=== PATIENT | female | born 1975 | race Caucasian/White ===

== ENCOUNTER 2016-10-06 08:00 | Emergency (ER) | payer MEDICAID ==
--- NOTE | 2016-10-08 13:11 | ER ---
ADMIT: 10/06/2016 RM/LOC: ER [facility] MR#: [id number] [address] [id number] SABINA LLAMAS [address] [place] [address] Emergency Room Report SEX: F AGE: 41 : 1975 DATE: 10/06/2016 A 41-year-old with headache. She has chronic headaches that occurred at least once every three months, but has it more frequently, it is similar to her prior headaches. See T-sheet for history and physical. The patient diagnosed with headache. Discharged. She is encouraged to follow up with a neurologist this coming week or at the minimum, see her primary. Harish Paige MD/ keily JOB #: [id number] CC: Harish Paige MD, Attending Physician Lucy Velázquez MD, Family Physician
== END 2016-10-06 10:09 | disposition home or self-care (01) ==
LOC: ER 08:00
DX: R51 Headache (principal); I10 Essential (primary) hypertension; Z79.899 Other long term (current) drug therapy